=== PATIENT | male | born 1990 | race Caucasian/White ===

== ENCOUNTER → 2017-09-01 | Outpatient (CLI) | payer MEDICAID ==
--- NOTE | 2017-09-01 15:20 | XR ---
Sinus HISTORY: Bloody noses, sinusitis 3 views of the sinuses Bone mineralization is maintained. There is no air-fluid level to suggest acute sinusitis. Orbits are intact. No fracture or dislocation. IMPRESSION: Correlate for point tenderness to assess for sinusitis, sinus CT is of increased sensitiv ity for detection of mucosal disease within the sinuses.
== END | disposition home or self-care (01) ==
LOC: RADXRYALE 14:32
PROVIDERS: ATTEND Nurse Practitioner Family
DX: J32.9 Chronic sinusitis, unspecified (principal)
CPT/HCPCS: 70220

== ENCOUNTER → 2017-09-14 | Outpatient (CLI) | payer MEDICAID ==
--- NOTE | 2017-09-14 13:15 | CT ---
EXAMINATION TYPE: CT sinus wo con DATE OF EXAM: 09/14/2017 COMPARISON: NONE HISTORY: sinustitis CT DLP: 636.4 mGycm CONTRAST: 0 mL of Omnipaque 350 The paranasal sinuses are examined in the axial plane at 2 mm thick sections. Reconstructed images i n the coronal plane were obtained. The maxillary sinuses are clear. The ethmoid air cells are clear. The sphenoid sinuses are clear. The frontal sinuses are clear. Kayley air cells are present bilaterally. The ostiomeatal units are p atent. There is some aeration of the tips of the uncinate processes. The septum is evaluated. There is septal deviation to the right. IMPRESSIONS: 1. No acute sinus abnormality.
== END | disposition home or self-care (01) ==
LOC: RADCTMAIN 12:05
PROVIDERS: ATTEND Family Medicine
DX: J32.9 Chronic sinusitis, unspecified (principal)
CPT/HCPCS: 70486